=== PATIENT | female | born 1960 | race Caucasian/White ===

== ENCOUNTER 2018-08-13 07:01 | Observation (INO) | payer OTHER ==
[2018-08-11 13:50] LABS: BASOPHILS # (AUTO) 0.1 (0.0-0.1); BASOPHILS % 0.7 % (0.0-1.0); EOSINOPHILS # (AUTO) 0.2 (0.0-0.4); EOSINOPHILS % 2.9 % (0.0-6.0); HEMATOCRIT 42.3 % (34.2-44.1); HEMOGLOBIN 14.1 g/dL (12.0-16.0); LYMPHOCYTES # (AUTO) 2.9 (1.0-3.2); LYMPHOCYTES % 40.8 % (18.0-39.1); MEAN CORPUSCULAR HEMOGLOBIN 32.4 pg (28-32); MEAN CORPUSCULAR HGB CONC 33.3 g/dL (31-35); MEAN CORPUSCULAR VOLUME 97.2 fL (81-99); MONOCYTES # (AUTO) 0.4 (0.2-0.8); MONOCYTES % 5.9 % (4.4-11.3); NEUTROPHILS # (AUTO) 3.5 (2.1-6.9); NEUTROPHILS % 49.6 % (38.7-80.0); PLATELET COUNT 211 x10e3/uL (140-360); RED BLOOD COUNT 4.35 x10e6/uL (3.6-5.1)
[2018-08-11 14:10] LABS: ANION GAP 13.1 mmol/L (8-16); BLOOD UREA NITROGEN 9 mg/dL (7-26); BUN/CREATININE RATIO 14 (6-25); CALCIUM 9.1 mg/dL (8.4-10.2); CARBON DIOXIDE 28 mmol/L (22-29); CHLORIDE 103 mmol/L (98-107); CREATININE, SERUM 0.65 mg/dL (0.57-1.11); EST GLOMERULAR FILTRATION RATE > 60 ML/MIN (60-); GLUCOSE 82 mg/dL (74-118); POTASSIUM 4.1 mmol/L (3.5-5.1); SODIUM 140 mmol/L (136-145)
[2018-08-11 14:14] LABS: INR 0.81; PARTIAL THROMBOPLASTIN TIME 24.1 seconds (23.8-35.5); PROTHROMBIN TIME 11.7 seconds (11.9-14.5)
--- NOTE | 2018-08-11 16:05 | Diagnostic Imaging Report ---
EXAMINATION: CHEST 2 VIEWS INDICATION: Preoperative COMPARISON: None FINDINGS: TUBES and LINES: None. LUNGS: The lung volumes are normal. No focal consolidation or pulmonary edema. Minimal right apical pleural parenchymal thickening/scarring. PLEURA: No pleural effusion or pneumothorax. HEART AND MEDIASTINUM: The cardiomediastinal silhouette is normal in size and contour. BONES AND SOFT TISSUES: No acute fracture or dislocation. UPPER ABDOMEN: No free air under the diaphragm. IMPRESSION: No focal pneumonia or pulmonary edema. Signed by: Trevor Villegas MD on 08/11/2018 4:02 PM
[~2018-08-13] VITALS: Ht 162.6 cm; Wt 59.0 kg
[~2018-08-13 07:01] MED LIST: ADDERALL 20 MG20 MG PO; TRAZODONE HCL50 MG PO; ZALEPLON10 MG PO
--- OUTSIDE RECORDS SUMMARY | 2018-08-13 07:03 | XMS REPORT ---
Author Author [facility] Address Unknown Phone Unavailable Care Team Providers Care Crew Leader Name Role Phone HOLGER CAMPBELL Unavailable Unavailable Problems This patient has no known problems. Allergies, Adverse Reactions, Alerts This patient has no known allergies or adverse reactions. Medications This patient has no known medications. Results Test Description Test Time Test Comments Text Results Atomic Results Result Comments CHEST 2 VIEWS 2018-08-11 15:30:00 [place] [address] Patient Name: CHATO MCCORMACK MR #: [id number] : 1960 Age/Sex: 58/F Req #: [id number] Adm Physician: Ordered by: HOLGER CAMPBELL MD Report #: [id number] Location: OR Room/Bed: Procedure: [id number] DX/CHEST 2 VIEWS Exam Date: 08/11/18 Exam Time: 1418 REPORT STATUS: Signed EXAMINATION: CHEST 2 VIEWS INDICATION: Preoperative COMPARISON: None FINDINGS: TUBES and LINES: None. LUNGS: The lung volumes are normal. No focal consolidation or pulmonary edema. Minimal right apical pleural parenchymal thickening/scarring. PLEURA: No pleural effusion or pneumothorax. HEART AND MEDIASTINUM: The cardiomediastinal silhouette is normal in size and contour. BONES AND SOFT TISSUES: No acute fracture or dislocation. UPPER ABDOMEN: No free air under the diaphragm. IMPRESSION: No focal pneumonia or pulmonary edema. Signed by: Varun Villegas MD on 08/11/2018 4:02 PM Dictated By: VARUN VILLEGAS MD 1602 Transcribed By: MELISA on 08/11/18 1602 COPY TO: HOLGER CAMPBELL MD
[2018-08-13] MEDS ORDERED: LIDOCAINE HCL (LTA) 4 ML SOLN ONE (07:15)
[2018-08-13] MEDS ORDERED: ACETAMINOPHEN 1000 MG/100 ML 100 ML IV ONE (07:15)
[2018-08-13] MEDS ORDERED: IBUPROFEN 800MG/ 250ML 250 ML IV ONE (07:15)
[2018-08-13] MEDS ORDERED: CEFAZOLIN SOD 1 GM/NS 50ML 50 ML IV ONE (07:26)
[2018-08-13] MEDS ORDERED: BUPIVACAINE 0.5%/EPI 30 ML SDV INJ ONE (08:12)
[2018-08-13] MEDS ORDERED: THROMBIN-JMI W/DIL SPRAY PUMP ACTUATOR 20000 UNIT KIT ONE (08:12)
[2018-08-13] MEDS ORDERED: BACITRACIN 50,000 UNIT VIAL ONE (08:12)
[2018-08-13] MEDS ORDERED: LACTATED RINGER'S 1,000 ML IV SCH (10:27)
[2018-08-13] MEDS ORDERED: ACETAMINOPHEN 325 MG TAB PO PRN (10:30)
[2018-08-13] MEDS ORDERED: OXYCODONE/ACETAMINOPHEN 5-325 1 EACH TABLET PO PRN ×2 (10:30→12:30)
[2018-08-13] MEDS ORDERED: MAGNESIUM/ALUMINUM/SIMETHICONE 30 ML UDC PO PRN (10:30)
[2018-08-13] MEDS ORDERED: CARISOPRODOL 350 MG TAB PO PRN (10:30)
[2018-08-13] MEDS ORDERED: HYDROMORPHONE 2MG/ML 2 MG/ML ML IV PRN (10:30)
[2018-08-13] MEDS ORDERED: ZOLPIDEM TARTRATE 5 MG TAB PO PRN (10:30)
[2018-08-13] MEDS ORDERED: MORPHINE SULFATE 5 MG/ML VIAL IM PRN (10:30)
[2018-08-13] MEDS ORDERED: PROMETHAZINE HCL (IM) 25 MG/ML VIAL IM PRN (10:30)
[2018-08-13] MEDS ORDERED: CEPACOL SORE THROAT LOZENGES PO PRN (10:30)
[2018-08-13] MEDS ORDERED: HYDROMORPHONE 2MG/ML 2 MG/ML ML ONE (10:32)
--- NOTE | 2018-08-13 12:00 | NUR ---
RECEIVED REPORT FROM ACTUARY, PATIENT IS S/P SCDF, IN STABLE CONDITION. BP: 112/73, HR: 82, O2 SAT 95% ON RA. PT HAS A R HAND PIV 20G WITH LR RUNNING AT 120 ML/HR. ANTERIOR NECK DRESSING IS C/D/I. NO COMPLAINTS OF PAIN OR N/V. PT IS TOLERATING ICE CHIPS
[2018-08-13] MEDS ORDERED: CEFAZOLIN SOD 1 GM/NS 50ML 50 ML IV SCH (14:00)
[2018-08-13] MEDS: HYDROMORPHONE 2MG/ML 2 MG/ML ML IV PRN ×2 (14:38→20:39)
[2018-08-13 16:26] VITALS: BP 110/76
[2018-08-13] MEDS ORDERED: FENTANYL CITRATE/PF 100MCG/2 ML INJ ONE (16:49)
[2018-08-13] MEDS ORDERED: MIDAZOLAM HCL 2 MG/2 ML VIAL ONE (16:49)
--- NOTE | 2018-08-13 16:53 | Operative Report ---
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 POSTOPERATIVE DIAGNOSIS: C5-6 and C6-7 spondylosis and kyphosis with radiculopathy, M50.120. PROCEDURES: 1. C5-6 anterior cervical diskectomy and microsurgical osteophyte resection and allograft fusion, 11460. 2. C6-7 anterior cervical diskectomy and microsurgical osteophyte resection and allograft fusion, 36240. 3. Preparation of tricortical iliac crest allograft, 04590. 4. C5-6 and C6-7 anterior cervical plating with Synthes CSLP plate, 32637. ANESTHESIA: General. INDICATIONS: The patient is a 58-year-old woman, who presents with C5-6 and C6-7 spondylosis and central and bilateral foraminal stenosis and kyphosis and was taken to the operating room for two-level anterior cervical decompression and fusion. PROCEDURE IN DETAIL: After induction of general anesthesia, the patient was placed on the operating table in supine position. The right side of the neck was prepped and draped in sterile fashion. The fluoroscopic C-arm was positioned in cross-table lateral orientation. Small transverse incision was created along the skin crease, superimposed on the C6 vertebral body as determined by fluoroscopy. The platysma was divided in line with the incision. A subplatysmal dissection was carried out and avascular plane of dissection was developed medial to the sternocleidomastoid muscle and was followed medial to the carotid sheath to the anterior border of the cervical spine. The deep cervical fascia was opened. The esophagus was retracted to the left. The attachments of longus colli muscles to the anterolateral aspects of the vertebral bodies of C5, C6, and C7 were divided. The anterior longitudinal ligament was resected. [place] posts were inserted into C5 and C7. The [place] distractor was used to distract both disk spaces simultaneously. The anterior annuli of disks were incised with a #11 blade. The contents of both disks were thoroughly evacuated with angled curettes and pituitary rongeurs. The posterior osteophytes were meticulously dissected and resected with a 2 mm cutting bur until they were completely removed. The posterior annulus of the disk, chronically herniated disk material, and the posterior longitudinal ligament were resected layer by layer with a 1 mm [place] rongeur until the dura was fully exposed and decompressed. The medial aspects of the uncinate processes were resected bilaterally to further expose any compressed origins of the C6 and C7 nerve roots. After satisfactory decompression had been achieved, the endplates were prepared for fusion. Two pieces of tricortical iliac crest allograft were cut to the size and shape of the disk spaces and were inserted into the disk spaces under distraction and fluoroscopic guidance. The distraction was released and the distraction posts were removed. A Synthes CSLP variable type anterior cervical plate measuring 31 mm was selected and was affixed to the vertebral bodies of C5, C6, and C7 with three pairs of 14 x 4.35 mm screws. All screw holes were first drilled and tapped under the lateral fluoroscopic guidance. All screws were locked with the appropriate locking screws. An excellent construct was obtained. The wound was copiously irrigated with bacitracin solution. Meticulous hemostasis was secured. Retraction was removed. The platysma was closed with 3-0 Vicryl sutures. The skin was closed with 4-0 Monocryl sutures in subcuticular fashion. Steri-Strips and dressing were applied. The patient was awakened, extubated, and taken to postanesthesia care unit in stable condition. No intraoperative complications were encountered. Estimated blood loss was 20 mL. Pablo Ellington MD PP/VIGNESH /[id number]
[2018-08-13] MEDS: CEFAZOLIN SOD 1 GM/NS 50ML 50 ML IV SCH (17:36)
[2018-08-13 17:38] VITALS: BP 110/76
[2018-08-13] MEDS ORDERED: ONDANSETRON HCL INJ 2MG/ML 2ML 2 MG/ML VIAL ONE (17:44)
[2018-08-13] MEDS ORDERED: ROCURONIUM BROMIDE 10 MG/ML 5ML VIAL ONE (17:44)
[2018-08-13] MEDS ORDERED: SEVOFLURANE INHAL SOLN 250 ML PEN BTL ONE (17:44)
[2018-08-13] MEDS ORDERED: DEXAMETHASONE SOD PHOS INJ 4 MG/ML VIAL ONE (17:44)
[2018-08-13] MEDS ORDERED: LIDOCAINE HCL 2% LOCAL INJ 5 ML SDV VIAL INJ ONE (17:44)
[2018-08-13] MEDS ORDERED: PROPOFOL IV EMULSION 10 MG/ML 20 ML VIAL ONE (17:44)
[2018-08-13] MEDS ORDERED: NEOSTIGMINE 5 MG/5ML SYR ONE (17:44)
[2018-08-13] MEDS ORDERED: GLYCOPYRROLATE INJ 1MG/ 5 ML SYR ONE (17:44)
--- NOTE | 2018-08-13 19:00 | NUR ---
received report from day nurse. patient is resting comfortably in bed. bed is in lowest position and call worrell is within reach. will continue to monitor patient.
[2018-08-13 19:46] VITALS: BP 115/69
[2018-08-13 19:48] VITALS: BP 115/69
[2018-08-13] MEDS: ONDANSETRON HCL INJ 2MG/ML 2ML 2 MG/ML VIAL IV PRN (20:39)
[2018-08-13 23:37] VITALS: BP 114/86
[2018-08-14] MEDS: CEFAZOLIN SOD 1 GM/NS 50ML 50 ML IV SCH (02:00)
[2018-08-14] MEDS: ONDANSETRON HCL INJ 2MG/ML 2ML 2 MG/ML VIAL IV PRN (03:36)
[2018-08-14] MEDS: HYDROMORPHONE 2MG/ML 2 MG/ML ML IV PRN (03:36)
[2018-08-14 04:25] VITALS: BP 122/73
--- NOTE | 2018-08-14 06:29 | Diagnostic Imaging Report ---
Cervical Spine Two Views CPT code: 08334 Indication: Postop Technique: AP and lateral views of cervical spine obtained. Comparison: None Findings: Images obtained while in a cervical collar. The vertebral bodies can be visualized to T1. Patient is status post anterior cervical discectomy and fusion from C5 to C7. The hardware is intact. No evidence of failure. Minimal disc space narrowing at C4-5. The facets and spinous processes are normally aligned. Alignment is maintained on the AP view. There are elongated transverse processes of C7. The skull base and upper chest normal. IMPRESSION: Postoperative changes of the cervical spine as described above. No malalignment. Signed by: Dr. Ezio Bustillos MD on 08/14/2018 6:26 AM
--- NOTE | 2018-08-14 06:50 | NUR ---
report given to day nurse. patient is resting comfortably in bed. bed is in lowest position and call worrell is within reach.
--- NOTE | 2018-08-14 07:00 | NUR ---
received am report from RN. morning rounds done. pt is awake resting comfortably in bed, no s/s of distress. no complaints from pt.
[2018-08-14 07:47] VITALS: BP 114/71
[2018-08-14 08:35] VITALS: BP 114/71
== END 2018-08-14 10:04 | disposition home or self-care (01) ==
LOC: OR 07:01 → PACU V 10:29 → MED/SURG 12:03
PROVIDERS: ADMIT Neurological Surgery; ATTEND Neurological Surgery
DX: M50.122 Cervical disc disorder at C5-C6 level with radiculopathy (principal); M48.02 Spinal stenosis, cervical region; M40.202 Unspecified kyphosis, cervical region; Z87.891 Personal history of nicotine dependence; Z01.810 Encounter for preprocedural cardiovascular examination; Z01.812 Encounter for preprocedural laboratory examination; Z01.811 Encounter for preprocedural respiratory examination; K21.9 Gastro-esophageal reflux disease without esophagitis; F90.9 Attention-deficit hyperactivity disorder, unspecified type
CPT/HCPCS: 20931; 22551; 22552; 22845; 36415; 71046; 72040; 80048; 85025; 85610; 85730; 86850; 86900; 88304; 93005; C1713 ×4; C1768; G0378 ×2; J0131; J0690 ×2; J1100; J1170 ×2; J2001; J2250; J2405 ×2; J2550; J2704; J3010; J3490; J7121; 77003

== ENCOUNTER 2018-08-18 21:00 | Emergency (ER) | payer OTHER ==
[~2018-08-18] VITALS: Ht 162.6 cm; Wt 59.0 kg
[2018-08-18 23:25] VITALS: BP 128/78
== END 2018-08-18 23:29 | disposition home or self-care (01) ==
LOC: ER 21:00
DX: M54.2 Cervicalgia (principal); M43.22 Fusion of spine, cervical region
CPT/HCPCS: 99282

== ENCOUNTER 2018-08-19 09:39 | Emergency (ER) | payer OTHER ==
[~2018-08-19] VITALS: Ht 162.6 cm; Wt 59.0 kg
[2018-08-19] MEDS ORDERED: DEXAMETHASONE SOD PHOS 10 MG/1 ML VIAL IV ONE ×2 (10:15→11:00)
--- NOTE | 2018-08-19 10:20 | NUR ---
PATIENT TO ROOM 6
[2018-08-19] MEDS ORDERED: HYDROMORPHONE 2MG/ML 2 MG/ML ML IV ONE ×2 (10:30→11:00)
--- NOTE | 2018-08-19 11:11 | NUR ---
PER DR. BLANK, MEDS MAY BE GIVEN IM INSTEAD OF IV
--- NOTE | 2018-08-19 11:23 | NUR ---
DR. DENT AT BEDSIDE EVALUATING PATIENT. HE TOOK HER COLLAR OFF DURING EVALUATION. DISCUSSED WITH HER REGARDING SWITCHING TO SOFT COLLAR AT HOME, TAKING VALIUM AND PERCOCET. ICY HOT, MASSAGE, LIDOCAINE PATCHES. TOLD HER IT WOULD GET BETTER IN 2 DAYS. PATIENT SENT TO X-RAY
--- NOTE | 2018-08-19 11:27 | NUR ---
PRESCRIPTIONS VALIUM 5MG TID PRN MUSCLE PAIN PERCOCET 5/325 MG Q4-6HRS PRN Addendum: 08/19/18 at 1128 by JEREMY PRESCRIPTIONS GIVEN TO SON TO HOLD ON TO
--- NOTE | 2018-08-19 11:54 | Diagnostic Imaging Report ---
EXAM: Cervical spine, 2 view, AP and lateral DATE: 08/19/2018 INDICATION: Neck pain COMPARISON: Cervical spine radiographs of 08/14/2018 FINDINGS: Again seen are post surgical findings of anterior cervical discectomy and fusion at C5-7. Hardware appears intact. There is straightening of the normal cervical lordosis. Alignment is otherwise unremarkable. No acute fracture. The prevertebral soft tissues are normal in thickness. IMPRESSION: Unchanged alignment status post anterior cervical discectomy and fusion of C5-C7. Signed by: Trevor Villegas MD on 08/19/2018 11:51 AM
== END 2018-08-19 13:09 | disposition home or self-care (01) ==
LOC: ER 09:39
DX: M54.2 Cervicalgia (principal); S16.1XXA Strain of muscle, fascia and tendon at neck level, initial encounter; M43.22 Fusion of spine, cervical region
CPT/HCPCS: 72040; 99283; J1100; J1170

== ENCOUNTER → 2018-09-16 | Outpatient (CLI) | payer OTHER ==
--- NOTE | 2018-09-16 17:23 | Diagnostic Imaging Report ---
EXAMINATION: SPINE CERVICAL AP LAT FLEX EXT INDICATION: Spondylolysis COMPARISON: None FINDINGS: AP lateral, flexion and extension views of the cervical spine demonstrate postoperative findings of anterior cervical discectomy and fusion at C5-7. Alignment is anatomic. No acute fracture or evidence of hardware failure. The prevertebral soft tissues are normal in thickness. IMPRESSION: Unchanged alignment status post anterior cervical discectomy and fusion at C5-7. No acute fracture or evidence of hardware failure. Signed by: Trevor Villegas MD on 09/16/2018 5:19 PM
== END ==
LOC: RAD 16:29
PROVIDERS: ATTEND Neurological Surgery
DX: M47.892 Other spondylosis, cervical region (principal)
CPT/HCPCS: 72050